=== PATIENT | male | born 1960 | race Caucasian/White ===

== ENCOUNTER 2018-03-22 11:35 | Inpatient (IN) | payer MEDICARE, MEDICAID ==
--- NOTE | 2018-03-22 11:59 | ED Physician Chart ---
ED Chief Complaint/HPI - Patient Information Date Seen:: 03/22/18 Time Seen:: 11:50 Chief Complaint:: abdominal pain History of Present Illness:: The last 3-4 days patient's had left lower quadrant abdominal pain radiating "towards" his penis. No vomiting or diarrhea. No fever. Patient has pain after urination which he normally has but it is now worse. Allergies:: Allergies Allergy/AdvReac Type Severity Reaction Status Date / Time Iodinated Contrast- Oral and Allergy Verified 03/22/18 11:54 IV Dye Historian:: Patient Review:: Nurse's Note Reviewed ED Review of Systems - Review of Systems General/Constitutional: No fever, No chills Skin: No skin lesions Head: No headache Eyes: No loss of vision ENT: No earache Neck: No neck pain Cardio Vascular: No chest pain Pulmonary: No SOB GI: No nausea, No vomiting, No diarrhea, Pain G/U: Dysuria Musculoskeletal: No bone or joint pain, No back pain, No muscle pain Endocrine: No polyuria, No polydipsia Psychiatric: No prior psych history, No depression, No anxiety, No suicidal ideation Hematopoietic: No bruising Allergic/Immuno: No urticaria Neurological: No syncope, No focal symptoms, No weakness ED Past Medical History - Past Medical History Past Medical History: HTN, CVA/TIA, Other (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 He was last hospitalized about one half months ago at [facility] following a TIA.) Family History: Heart disease Social History: Smoker, No Alcohol, Other (patient smokes 1/2-3/4 pack of cigarettes a day; he apparently drank alcohol in the past but not currently) Surgical History: other (left ankle and right shoulder) Psychiatricy History: None Medication: Reviewed Family Medical History - Family Member Father Ethnicity: Non- Living Status: Hx Family Coronary Artery Disease: Yes ED Physical Exam - Physical Examination General/Constitutional: Awake, Well-developed, well-nourished, Alert, No distress Head: Atraumatic Eyes: Lids, conjuctiva normal, PERRL Skin: Nl inspection, No rash ENMT: External ears, nose nl Neck: No nuchal rigidity Respiratory: Nl effort/Exclusion, Clear to Auscultation, No Wheeze/Rhonchi/Rales Cardio Vascular: RRR, No murmur, gallop, rubs GI: No organomegaly, No hernia, Normal BS's, Nondistended, No mass/bruits, No McBurney tenderness Other GI comments:: Left lower quadrant tenderness : No CVA tenderness Other Extremities comments:: see under neurological Other Neuro/Psych comments:: Drooping of left corner of mouth and left-sided paralysis ED Labs/Radiology/EKG Results - Lab Results Results: Laboratory Results WBC 6.9 Th/cmm (4.8-10.8) 03/22/18 12:06 RBC 4.74 Mil/cmm (4.30-5.70) 03/22/18 12:06 Hgb 15.4 gm/dL (12-16) 03/22/18 12:06 Hct 46.5 % (41.0-60) 03/22/18 12:06 MCV 98.0 fl (80-99) 03/22/18 12:06 MCH 32.5 pg (26.0-30.0) H 03/22/18 12:06 MCHC Differential 33.1 pg (28.0-36.0) 03/22/18 12:06 RDW 12.5 % (11.5-20.0) 03/22/18 12:06 Plt Count 272 Th/cmm (150-400) 03/22/18 12:06 MPV 7.7 fl 03/22/18 12:06 Neutrophils % 60.5 % (40.0-80.0) 03/22/18 12:06 Lymphocytes % 30.0 % (20.0-50.0) 03/22/18 12:06 Monocytes % 6.1 % (2.0-10.0) 03/22/18 12:06 Eosinophils % 2.8 % (0.0-5.0) 03/22/18 12:06 Basophils % 0.6 % (0.0-2.0) 03/22/18 12:06 Sodium 138 mEq/L (136-145) 03/22/18 12:06 Potassium 4.5 mEq/L (3.5-5.1) 03/22/18 12:06 Chloride 107 mEq/L (98-107) 03/22/18 12:06 Carbon Dioxide 27.0 mEq/L (21.0-31.0) 03/22/18 12:06 Anion Gap 8.5 (7.0-16.0) 03/22/18 12:06 BUN 13 mg/dL (7-25) 03/22/18 12:06 Creatinine 0.7 mg/dL (0.7-1.3) 03/22/18 12:06 Est GFR ( Amer) > 60.0 ml/min (>90) 03/22/18 12:06 Est GFR (Non-Af Amer) > 60.0 ml/min 03/22/18 12:06 BUN/Creatinine Ratio 18.6 03/22/18 12:06 Glucose 102 mg/dL (70-105) 03/22/18 12:06 Calcium 9.5 mg/dL (8.6-10.3) 03/22/18 12:06 Magnesium 2.0 mg/dL (1.9-2.7) 03/22/18 12:06 Lipase 19 U/L (11-82) 03/22/18 12:06 Abnormal Lab Results 03/22/18 03/22/18 12:06 12:06 WBC 6.9 RBC 4.74 Hgb 15.4 Hct 46.5 MCV 98.0 MCH 32.5 H MCHC Differential 33.1 RDW 12.5 Plt Count 272 MPV 7.7 Neutrophils % 60.5 Lymphocytes % 30.0 Monocytes % 6.1 Eosinophils % 2.8 Basophils % 0.6 Sodium 138 Potassium 4.5 Chloride 107 Carbon Dioxide 27.0 Anion Gap 8.5 BUN 13 Creatinine 0.7 Est GFR ( Amer) > 60.0 Est GFR (Non-Af Amer) > 60.0 BUN/Creatinine Ratio 18.6 Glucose 102 Calcium 9.5 Magnesium 2.0 Lipase 19 - Radiology Results Results: Mild thickening of the wall of the ascending colon; possible colitis. ED Septic Shock - . Is Septic Shock (SBP<90, OR Lactate>4 mmol\\L) present?: No ED Reassessment (Disposition) - Reassessment Reassessment Condition:: Unchanged - Diagnosis Diagnosis:: Colitis - Patient Disposition Admitted to:: Telemetry Spoke to:: Ray Coello Admitting Medical Physician:: Ray Coello Condition at Disposition:: Stable, Unchanged
[2018-03-22 12:21] LABS: % BASOPHILS 0.6 % (0.0-2.0); % EOSINOPHILS 2.8 % (0.0-5.0); % MONOCYTES 6.1 % (2.0-10.0); % NEUTROPHILS 60.5 % (40.0-80.0); EOSINOPHILE ABSOLUTE 0.2 Th/cmm (0.1-0.4); HEMATOCRIT 46.5 % (41.0-60); HEMOGLOBIN 15.4 gm/dL (12-16); LYMPHOCYTE ABSOLUTE 2.1 Th/cmm (1.5-3.0); MEAN CORPUSCULAR HEMOGLOBIN 32.5 pg (26.0-30.0); MEAN CORPUSCULAR HGB CONC 33.1 pg (28.0-36.0); MEAN PLATELET VOLUME 7.7 fl; MONOCYTE ABSOLUTE 0.4 Th/cmm (0.3-1.0); NEUTROPHILE ABSOLUTE 4.2 Th/cmm (1.8-8.0); PLATELET COUNT 272 Th/cmm (150-400); RED BLOOD COUNT 4.74 Mil/cmm (4.30-5.70); RED CELL DISTRIBUTION WIDTH 12.5 % (11.5-20.0); WHITE BLOOD COUNT 6.9 Th/cmm (4.8-10.8)
[2018-03-22 12:29] LABS: ANION GAP 8.5 (7.0-16.0); BUN - UREA NITROGEN 13 mg/dL (7-25); CALCIUM SERUM 9.5 mg/dL (8.6-10.3); CHLORIDE 107 mEq/L (98-107); CREATININE - SERUM 0.7 mg/dL (0.7-1.3); GFR AFRICAN-AMERICAN > 60.0 ml/min (>90); GFR NON AFRICAN-AMERICAN > 60.0 ml/min; GLUCOSE 102 mg/dL (70-105); LIPASE 19 U/L (11-82); POTASSIUM SERUM 4.5 mEq/L (3.5-5.1); SODIUM SERUM 138 mEq/L (136-145)
--- NOTE | 2018-03-22 13:46 | Diagnostic Imaging Report ---
CT scan abdomen and pelvis without intravenous contrast HISTORY: Pain Total DLP equals 757 CTDI equals 14.4 Axial sections were obtained from the xiphoid process down to the pubic symphysis. Limited sections of the lower chest demonstrate coronary artery and atherosclerotic vascular calcification. The liver exhibits a homogeneous parenchyma. No focal lesions. The spleen appears normal. No focal amenities seen within the pancreas. There are several punctate calcifications in the medullary right kidney. No hydronephrosis. No focal lesions seen within the left kidney. No hydronephrosis. Atherosclerotic calcination seen through the aorta. The exam of the pelvis demonstrates a mildly distended stool-filled rectum. No discrete abnormal soft tissue masses or abnormal fluid collections. There appears to be mild thickening of the wall along the ascending colon. Inflammatory change (colitis) cannot be excluded. Clinical correlation is needed. Scoliosis and diffuse degenerative changes seen to the spine. IMPRESSION: 1. Suggestion of mild thickening along the wall of the ascending colon. Significance should be correlated clinically. Colitis cannot be excluded. 2. Punctate nonobstructing right renal calculi 3. Atherosclerotic vascular changes 4. Scoliosis is severe diffuse degenerative changes throughout the spine 5. Mildly distended stool-filled rectum
[2018-03-22 15:18] LABS: URINE SOURCE RANDOM
[2018-03-22 15:20] LABS: URINE BILIRUBIN NEGATIVE (NEGATIVE); URINE BLOOD NEGATIVE (NEGATIVE); URINE GLUCOSE (UA) NEGATIVE (NEGATIVE); URINE KETONE NEGATIVE (NEGATIVE); URINE LEUKOCYTE ESTERASE NEGATIVE (NEGATIVE); URINE NITRATE NEGATIVE (NEGATIVE); URINE PROTEIN NEGATIVE (NEGATIVE); URINE UROBILINOGEN 0.2 E.U./dL (0.2 - 1.0)
[2018-03-22 15:33] LABS: URINE COLOR YELLOW
[2018-03-22 15:34] LABS: URINE CLARITY CLEAR (CLEAR); URINE MICROSCOPIC INDICATED? YES
[2018-03-22 15:35] LABS: URINE BACTERIA FEW /hpf (NONE SEEN); URINE EPITHELIAL CELLS NONE SEEN /lpf (FEW); URINE RBC 0-2 /hpf (0-5)
[2018-03-22] MEDS: Sodium Chloride 0.9% 1,000 ML IV SCH (16:23)
[2018-03-22] MEDS ORDERED: metroNIDAZOLE 500mg/NS 100mL 500 MG/100 ML BAG IV SCH (18:00)
[2018-03-22] MEDS: APAP/Oxycodone 5/325mg Tab PO PRN (20:11)
[2018-03-22] MEDS ORDERED: Non-Formulary Item 1 EA (Trazodone Hcl [Trazodone Hcl] 100 MG) PO PRN (23:04)
[2018-03-22] MEDS ORDERED: Magnesium Hydroxide (MOM) 30 mL UDC PO PRN (23:04)
[2018-03-22] MEDS ORDERED: Non-Formulary Item 1 EA (Oxycodone Hcl/Acetaminophen [Percocet 325 Mg-10 Mg*] 1 TAB) PO PRN (23:04)
[2018-03-22] MEDS ORDERED: APAP/Oxycodone 5/325mg Tab PO PRN (23:21)
--- NOTE | 2018-03-22 23:44 | History & Physical ---
ADMIT DATE: 03/22/2018 CHIEF COMPLAINT: A 8/10 abdominal pain. HISTORY OF PRESENT ILLNESS: The patient is a 57-year-old male admitted from the Emergency Room to telemetry floor of [facility] due to 8/10 abdominal pain in the [facility]pc. Abdominal and pelvic CT scan done here revealed mild thickening along the wall of the ascending colon suggesting colitis. I saw the patient on Flagyl 500 mg IVPB already, but the patient refused IV and I have changed it to p.o. The patient is very confused and agitated now. Apparently, he does have history of schizophrenia and I have requested psychiatric consultation. He also has a history of chronic pain syndrome and is on pain medication from the [facility], which was provided by the pain specialist. PAST MEDICAL HISTORY: Including status post TIA, difficulty walking, lack of coordination with abnormal posture, seizure disorder, chronic peptic ulcer disease, gout, hyperlipidemia, schizophrenia, polyneuropathy, and depression. PAST SURGICAL HISTORY: Denies significant past surgical history. MEDICATIONS: See medication reconciliation list. ALLERGIES: IODINE. FAMILY HISTORY: Noncontributory. SOCIAL HISTORY: Smoked before heavily, quit years ago. No history of alcohol or IV drug use. REVIEW OF SYSTEMS: As per HPI. PHYSICAL EXAMINATION: GENERAL: Well-developed, well-nourished male, in no acute distress. SKIN: Warm and dry. VITAL SIGNS: Basically stable. HEENT: Normocephalic, atraumatic. Pupils equal, round, react to light and accommodation. CHEST: Symmetrical. LUNGS: Clear to auscultation bilaterally. CARDIAC: Normal sinus rhythm, S1, S2. ABDOMEN: There is tenderness in the left lower quadrant of abdomen. Bowel sounds positive. EXTREMITIES: No clubbing, cyanosis. Edema bilaterally, 2+ equally. NEUROLOGICAL: Unremarkable. LABORATORY DATA: Reviewed. ASSESSMENT AND PLAN: 1. A 8/10 abdominal pain: I ordered for a clear liquid diet and we will observe closely. CT evidence of probable colitis. I will start the patient on Flagyl IVPB, but the patient refused IV access. We have changed it to p.o. 2. Altered level of consciousness due to metabolic encephalopathy. We will observe closely. 3. Agitation: The patient may need a sitter. 4. Chronic pain syndrome exacerbation: Adjust pain medication as needed. 5. Insomnia: The patient is on trazodone. 6. Schizophrenia: Psychiatric consultation. 7. DVT prophylaxis. JOB# [id number]
[2018-03-23] MEDS: metroNIDAZOLE 500mg/NS 100mL 500 MG/100 ML BAG IV SCH ×4 (00:47→17:29)
[2018-03-23] MEDS: APAP/Oxycodone 5/325mg Tab PO PRN ×3 (02:14→16:24)
[2018-03-23] MEDS ORDERED: Non-Formulary Item 1 EA (Apixaban [Eliquis] 5 MG) PO SCH (09:00)
[2018-03-23] MEDS ORDERED: Non-Formulary Item 1 EA (Docusate Sodium [Docusate Sodium] 100 MG) PO SCH (09:00)
[2018-03-23] MEDS ORDERED: Non-Formulary Item 1 EA (Levetiracetam [Keppra] 1,000 MG) PO SCH (09:00)
[2018-03-23] MEDS: Multivitamin w/ Minerals Tab PO SCH (09:48)
[2018-03-23] MEDS: Sodium Chloride 0.9% 1,000 ML IV SCH (19:00)
[2018-03-23] MEDS ORDERED: Non-Formulary Item 1 EA (Atorvastatin Calcium [Lipitor] 40 MG) PO SCH (21:00)
[2018-03-24] MEDS: APAP/Oxycodone 5/325mg Tab PO PRN ×5 (00:05→18:41)
[2018-03-24] MEDS: metroNIDAZOLE 500mg/NS 100mL 500 MG/100 ML BAG IV SCH ×4 (00:05→17:06)
--- NOTE | 2018-03-24 01:37 | Consultation ---
DATE OF CONSULTATION: 03/23/2018 IDENTIFYING INFORMATION: The patient is a 57-year-old male. HISTORY OF PRESENT ILLNESS: The patient with a history of schizophrenia. The patient was admitted because of abdominal pain 8/[address] scan done revealed mild thickening along the wall of the ascending colon and suggesting colitis. The patient refused IV, so the doctor changed it to p.o. He was confused and agitated. Apparently, he does have a history of schizophrenia according to the records from Dr. Coello, the patient with a history of chronic pain, so they requested a psychiatric consult. When I talked to the patient, he was very upset because he said he never had a history of schizophrenia that in the past they gave him Seroquel to sleep, but he was never hospitalized, never tried to harm himself, he just suffered with anxiety. He was somewhat irritable and upset, but he denies any intent to harm himself or anybody. He reported cannot sleep here because it is too cold and the food is not good. However, he was adamant that he never had any major psychiatric issues, just anxiety. PAST PSYCHIATRIC HISTORY: The patient only had a history of anxiety and that he did get on Seroquel in the past because of lack of sleep. He currently is on trazodone at bedtime for lack of sleep. MEDICAL HISTORY: Colitis, ____ he may have metabolic encephalopathy, chronic pain syndrome, and DVT prophylaxis. ALLERGIES: THE PATIENT IS ALLERGIC TO IODINE ORAL AND IV DYE. MEDICATIONS: The patient is on pain medications ____, oxycodone, atorvastatin for hyperlipidemia, Dulcolax, diphenhydramine as needed, and Neurontin 300 mg 4 times a day. He is on Keppra with a history of seizure disorder, Robaxin, methocarbamol, metronidazole oral for colitis, multivitamin, and trazodone 100 mg at bedtime as needed for lack of sleep. FAMILY AND SOCIAL HISTORY: The patient reports that he is for 16-17 years from marriage of 19 years, has 2 children, a boy and a girl, 12th grade education. 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 He reports he drinks socially. He used to use marijuana, but not recently. He said he was at the [place] and they tested him randomly because of the pain medication. They would not give him the pain medication if he was found to be abusing street drugs ____. The patient denies any past psychotic disorder, suicide. The patient has been living in a medical facility as he had a history of CVA in 1999 and he has 4 of them so far. He has no legal problem. MENTAL STATUS EXAMINATION: The patient is appropriately dressed, appropriately groomed. He was able to tell me the date, but he had to look at his watch. He knew he was in a hospital, but he denies if he was ever schizophrenic. He said his sleep and appetite varies. He lives in a nursing facility. Appetite is okay. He sleeps well at the nursing facility. He denies any intent to harm himself or anybody. Denies any auditory or visual hallucination or paranoia, he reports he never had that problem. Long-term is good for age, date of . Recent memory is good, for events led to him coming here, what he ate for breakfast. Insight about his illness is fair. Judgment is fair. IMPRESSION: Generalized anxiety disorder, not otherwise specified. PLAN: I would recommend continue trazodone. The patient needs follow up with the psychiatrist on discharge. Thank you very much for allowing me to participate in the care of this most interesting gentleman. JOB# [id number]
[2018-03-24] MEDS: Multivitamin w/ Minerals Tab PO SCH (09:01)
--- NOTE | 2018-03-24 21:24 | Consultation ---
DATE OF CONSULTATION: 03/24/2018 REASON FOR CONSULTATION: Abdominal pain. HISTORY OF PRESENT ILLNESS: This consult obtained through the request of Dr. Coello for this 57-year-old with extensive medical history including for CVAs, atrial fibrillation, hypertension, multiple disk problems who lives in a [facility], was admitted to the hospital because of abdominal pain. Apparently, the patient has been having pain off and on for a couple of months. At this time, it was 8/10 and started few days ago. He came to the hospital, had a CAT scan, which showed thickening of the right side of the colon. The patient was admitted. GI consult was called in for further evaluation. The patient has lost weight in the past, but now that he is in a chcf. He is eating better. He has no nausea or vomiting. He has constipation, no bleeding. He had a colonoscopy and endoscopy at the [place] 4 years ago and it showed 5 polyps. PAST MEDICAL HISTORY: TIAs and CVAs, seizure disorder, peptic ulcer disease, gout, hyperlipidemia, schizophrenia, depression, disk disease and atrial fibrillation. PAST SURGICAL HISTORY: Had left ankle. He had right shoulder SOCIAL HISTORY: Smokes half to 3/4 pack a day, nonalcoholic and IV drug abuser. FAMILY HISTORY: Father of stomach and liver cancer. ALLERGIES: CONTRAST. MEDICATIONS: The patient is on Tylenol, vitamin C, atorvastatin, bisacodyl, Benadryl, Colace, Neurontin, Keppra, milk of magnesia, Robaxin, Flagyl, iron, [place] and Desyrel. REVIEW OF SYSTEMS: No weight loss. No nausea or vomiting, but there is constipation, no bleeding. PHYSICAL EXAMINATION: GENERAL: The patient is awake, oriented to self, place, and time, in no acute distress. VITAL SIGNS: Blood pressure is 122/86, heart rate 76, respiratory rate 18 and temperature is 97.3. HEAD AND NECK: Pupils reactive to light and accommodation. Extraocular muscles intact. Sclerae are anicteric. Conjunctivae not pale. Oral cavity, no lesion. NECK: Supple. CHEST: Good air entry. LUNGS: Clear to auscultation. CARDIOVASCULAR: Regular rate and rhythm. No murmur or gallop. ABDOMEN: Soft. Positive bowel sounds. Mild diffuse tenderness. EXTREMITIES: Lower extremities, no edema. CENTRAL NERVOUS SYSTEM: The patient is in a wheelchair, not able to move the left side. LABORATORY AND DIAGNOSTIC DATA: CBC unremarkable. Chemistry also unremarkable, but it did not include liver enzymes. CAT scan showed thickening of the right side of the colon. IMPRESSION: A 57-year-old with abdominal pain and history of colon polyps. ASSESSMENT AND PLAN: Abdominal pain: This picture could be related to colitis even though this most likely nonspecific and might be some incomplete filling of the colon, but given the history of patient having pain off and on for a while, has lost some weight, but now is getting it back, has several polyps removed 4 years ago he will need to have another colonoscopy, so we will plan to check it on Monday and then further recommendations to follow. Other differential would be renal calculi, even though patient had a CAT scan, which showed some stones, but they are not obstructing and he has also stools in the colon. Also, we will recheck liver enzymes and then further recommendations to follow. Other medical problems such as atrial fibrillation, seizure, cerebrovascular accident, disk disease, etc., as per Dr. Coello. Thank you, Dr. Coello, for allowing me to participate in the care of the patient. If you have any further questions, please let me know. JOB# [id number]
[2018-03-24] MEDS ORDERED: Morphine Sulfate 4 mg/mL 1mL Syr IVP PRN (23:54)
[2018-03-25] MEDS: APAP/Oxycodone 5/325mg Tab PO PRN ×4 (00:13→20:34)
--- NOTE | 2018-03-25 00:22 | Internal Medicine Prog Note ---
Internal Medicine Subjective - Subjective Service Date: 03/23/18 Patient seen and examined:: with staff Patient is:: awake, verbal, interactive, arousable, in bed Patient Complaints of:: unable to sleep Per staff patient has:: no adverse event Internal Medicine Objective - Results Result Diagrams: 03/22/18 12:06 03/22/18 12:06 Recent Labs: Laboratory Last Values WBC 6.9 Th/cmm (4.8-10.8) 03/22/18 12:06 RBC 4.74 Mil/cmm (4.30-5.70) 03/22/18 12:06 Hgb 15.4 gm/dL (12-16) 03/22/18 12:06 Hct 46.5 % (41.0-60) 03/22/18 12:06 MCV 98.0 fl (80-99) 03/22/18 12:06 MCH 32.5 pg (26.0-30.0) H 03/22/18 12:06 MCHC Differential 33.1 pg (28.0-36.0) 03/22/18 12:06 RDW 12.5 % (11.5-20.0) 03/22/18 12:06 Plt Count 272 Th/cmm (150-400) 03/22/18 12:06 MPV 7.7 fl 03/22/18 12:06 Neutrophils % 60.5 % (40.0-80.0) 03/22/18 12:06 Lymphocytes % 30.0 % (20.0-50.0) 03/22/18 12:06 Monocytes % 6.1 % (2.0-10.0) 03/22/18 12:06 Eosinophils % 2.8 % (0.0-5.0) 03/22/18 12:06 Basophils % 0.6 % (0.0-2.0) 03/22/18 12:06 Sodium 138 mEq/L (136-145) 03/22/18 12:06 Potassium 4.5 mEq/L (3.5-5.1) 03/22/18 12:06 Chloride 107 mEq/L (98-107) 03/22/18 12:06 Carbon Dioxide 27.0 mEq/L (21.0-31.0) 03/22/18 12:06 Anion Gap 8.5 (7.0-16.0) 03/22/18 12:06 BUN 13 mg/dL (7-25) 03/22/18 12:06 Creatinine 0.7 mg/dL (0.7-1.3) 03/22/18 12:06 Est GFR ( Amer) > 60.0 ml/min (>90) 03/22/18 12:06 Est GFR (Non-Af Amer) > 60.0 ml/min 03/22/18 12:06 BUN/Creatinine Ratio 18.6 03/22/18 12:06 Glucose 102 mg/dL (70-105) 03/22/18 12:06 Calcium 9.5 mg/dL (8.6-10.3) 03/22/18 12:06 Magnesium 2.0 mg/dL (1.9-2.7) 03/22/18 12:06 Lipase 19 U/L (11-82) 03/22/18 12:06 Urine Source RANDOM 03/22/18 15:08 Urine Color YELLOW 03/22/18 15:08 Urine Clarity CLEAR (CLEAR) 03/22/18 15:08 Urine pH 6.0 (4.6 - 8.0) 03/22/18 15:08 Ur Specific [place] >= 1.030 (1.005-1.030) 03/22/18 15:08 Urine Protein NEGATIVE mg/dL (NEGATIVE) 03/22/18 15:08 Urine Glucose (UA) NEGATIVE mg/dL (NEGATIVE) 03/22/18 15:08 Urine Ketones NEGATIVE mg/dL (NEGATIVE) 03/22/18 15:08 Urine Blood NEGATIVE (NEGATIVE) 03/22/18 15:08 Urine Nitrate NEGATIVE (NEGATIVE) 03/22/18 15:08 Urine Bilirubin NEGATIVE (NEGATIVE) 03/22/18 15:08 Urine Urobilinogen 0.2 E.U./dL (0.2 - 1.0) 03/22/18 15:08 Ur Leukocyte Esterase NEGATIVE (NEGATIVE) 03/22/18 15:08 Urine RBC 0-2 /hpf (0-5) H 03/22/18 15:08 Urine WBC 2-5 /hpf (0-5) 03/22/18 15:08 Ur Epithelial Cells NONE SEEN /lpf (FEW) 03/22/18 15:08 Urine Bacteria FEW /hpf (NONE SEEN) 03/22/18 15:08 - Physical Exam Vitals and I&O: Vital Signs Temp 97.6 F 03/24/18 20:00 Pulse 75 03/24/18 20:00 Resp 18 03/24/18 20:00 BP 136/97 03/24/18 20:00 Pulse Ox 96 03/24/18 20:00 Intake & Output 03/24/18 03/24/18 03/25/18 06:59 18:59 06:59 Intake Total 958.75 300 Balance 958.75 300 Intake: Intake, IV Amount 958.75 300 Sodium Chloride 0.9% 1, 858.75 000 ml @ 75 mls/hr IV . [id number] [facility] Rx#:[id number] metroNIDAZOLE 500mg/NS 100 300 100mL 500 mg In 100 ml @ 100 mls/hr IV Q6HR [facility] Rx #:[id number] Active Medications: Current Medications Acetaminophen (Tylenol) 325 mg PO Q6HR PRN PRN Reason: Pain or Fever >101 Stop: 05/21/18 23:03 Ascorbic Acid (Vitamin C) 500 mg PO DAILY [facility] Stop: 05/22/18 08:59 Last Admin: 03/24/18 09:01 Dose: 500 mg Atorvastatin Calcium (Lipitor) 40 mg PO HS [facility] Stop: 05/22/18 20:59 Last Admin: 03/24/18 21:01 Dose: 40 mg Bisacodyl (Dulcolax 10 Mg Supp) 10 mg RC DAILY PRN PRN Reason: Constipation Stop: 05/21/18 23:03 Bisacodyl (Dulcolax 5 Mg Ec Tab) 10 mg PO X1 ONE Stop: 03/26/18 16:01 Diphenhydramine HCl (Benadryl) 50 mg PO Q6H PRN PRN Reason: Itching Stop: 05/21/18 23:03 Last Admin: 03/24/18 21:03 Dose: 50 mg Docusate Sodium (Colace) 250 mg PO DAILY [facility] Stop: 05/22/18 08:59 Last Admin: 03/24/18 09:23 Dose: Not Given Gabapentin (Neurontin) 300 mg PO QID SHELL Stop: 05/22/18 08:59 Last Admin: 03/24/18 21:01 Dose: 300 mg Sodium Chloride (Nacl 0.9%) 1,000 mls @ 75 mls/hr IV .[id number] [facility] Stop: 05/21/18 15:25 Last Infusion: 03/24/18 06:27 Dose: 75 mls/hr Metronidazole (Flagyl) 500 mg in 100 mls @ 100 mls/hr IV Q6HR [facility] Stop: 05/22/18 00:29 Last Infusion: 03/24/18 18:24 Dose: Infused Levetiracetam (Keppra) 1,000 mg PO Q12H [facility] Stop: 05/21/18 08:59 Last Admin: 03/24/18 21:00 Dose: 1,000 mg Magnesium Hydroxide (Milk Of Magnesia) 30 ml PO HS PRN PRN Reason: Constipation Stop: 05/21/18 23:03 Methocarbamol (Robaxin) 500 mg PO BID PRN PRN Reason: Pain (Moderate) Stop: 05/21/18 16:39 Last Admin: 03/22/18 20:11 Dose: 500 mg Methocarbamol (Robaxin) 250 mg PO BID PRN PRN Reason: Spasms Stop: 05/21/18 23:03 Miscellaneous (Apixaban [Eliquis]) 5 mg PO Q12HR [facility] Stop: 05/22/18 08:59 Morphine Sulfate (Morphine) 3 mg IVP Q4H PRN PRN Reason: SERVERE PAIN Stop: 05/23/18 23:53 Oxycodone/Acetaminophen (Percocet 5/325mg Oral Tab) 2 tab PO Q4H PRN PRN Reason: Pain (Severe) Stop: 05/22/18 16:08 Last Admin: 03/24/18 18:41 Dose: 2 tab Polyethylene Glycol/Electrolytes (Golytely) 4,000 ml PO X1 ONE Stop: 03/25/18 11:39 Trazodone HCl (Desyrel) 100 mg PO HS PRN PRN Reason: Insomnia Stop: 05/21/18 23:19 Last Admin: 03/22/18 23:52 Dose: 100 mg General: weak, lethargic HEENT: NC/AT, PERRLA, EOMI, anicteric sclerae, throat clear, thyromegaly Neck: Supple, No JVD Lungs: CTAB Cardiovascular: RRR, Normal S1, Normal S2 Abdomen: soft, tender Extremities: clear Neurological: no change Internal Medicine Assmt/Plan - Assessment Assessment: Abd pain: multifactorial; work up in progress. Colitis: flagyl IVPB or PO; GI consult appreciated. h/o colon polyps: Colonoscopy? Chronic pain syndrome exacerbation: adjusting pain meds? Anxiety: Psychiatric consult. Difficult walking: fall prevention.
--- NOTE | 2018-03-25 00:23 | Internal Medicine Prog Note ---
Internal Medicine Subjective - Subjective Service Date: 03/24/18 Patient seen and examined:: with staff, without staff Patient is:: awake, verbal, interactive, arousable, in bed Patient Complaints of:: unable to sleep Per staff patient has:: no adverse event Internal Medicine Objective - Results Result Diagrams: 03/22/18 12:06 03/22/18 12:06 Recent Labs: Laboratory Last Values WBC 6.9 Th/cmm (4.8-10.8) 03/22/18 12:06 RBC 4.74 Mil/cmm (4.30-5.70) 03/22/18 12:06 Hgb 15.4 gm/dL (12-16) 03/22/18 12:06 Hct 46.5 % (41.0-60) 03/22/18 12:06 MCV 98.0 fl (80-99) 03/22/18 12:06 MCH 32.5 pg (26.0-30.0) H 03/22/18 12:06 MCHC Differential 33.1 pg (28.0-36.0) 03/22/18 12:06 RDW 12.5 % (11.5-20.0) 03/22/18 12:06 Plt Count 272 Th/cmm (150-400) 03/22/18 12:06 MPV 7.7 fl 03/22/18 12:06 Neutrophils % 60.5 % (40.0-80.0) 03/22/18 12:06 Lymphocytes % 30.0 % (20.0-50.0) 03/22/18 12:06 Monocytes % 6.1 % (2.0-10.0) 03/22/18 12:06 Eosinophils % 2.8 % (0.0-5.0) 03/22/18 12:06 Basophils % 0.6 % (0.0-2.0) 03/22/18 12:06 Sodium 138 mEq/L (136-145) 03/22/18 12:06 Potassium 4.5 mEq/L (3.5-5.1) 03/22/18 12:06 Chloride 107 mEq/L (98-107) 03/22/18 12:06 Carbon Dioxide 27.0 mEq/L (21.0-31.0) 03/22/18 12:06 Anion Gap 8.5 (7.0-16.0) 03/22/18 12:06 BUN 13 mg/dL (7-25) 03/22/18 12:06 Creatinine 0.7 mg/dL (0.7-1.3) 03/22/18 12:06 Est GFR ( Amer) > 60.0 ml/min (>90) 03/22/18 12:06 Est GFR (Non-Af Amer) > 60.0 ml/min 03/22/18 12:06 BUN/Creatinine Ratio 18.6 03/22/18 12:06 Glucose 102 mg/dL (70-105) 03/22/18 12:06 Calcium 9.5 mg/dL (8.6-10.3) 03/22/18 12:06 Magnesium 2.0 mg/dL (1.9-2.7) 03/22/18 12:06 Lipase 19 U/L (11-82) 03/22/18 12:06 Urine Source RANDOM 03/22/18 15:08 Urine Color YELLOW 03/22/18 15:08 Urine Clarity CLEAR (CLEAR) 03/22/18 15:08 Urine pH 6.0 (4.6 - 8.0) 03/22/18 15:08 Ur Specific [place] >= 1.030 (1.005-1.030) 03/22/18 15:08 Urine Protein NEGATIVE mg/dL (NEGATIVE) 03/22/18 15:08 Urine Glucose (UA) NEGATIVE mg/dL (NEGATIVE) 03/22/18 15:08 Urine Ketones NEGATIVE mg/dL (NEGATIVE) 03/22/18 15:08 Urine Blood NEGATIVE (NEGATIVE) 03/22/18 15:08 Urine Nitrate NEGATIVE (NEGATIVE) 03/22/18 15:08 Urine Bilirubin NEGATIVE (NEGATIVE) 03/22/18 15:08 Urine Urobilinogen 0.2 E.U./dL (0.2 - 1.0) 03/22/18 15:08 Ur Leukocyte Esterase NEGATIVE (NEGATIVE) 03/22/18 15:08 Urine RBC 0-2 /hpf (0-5) H 03/22/18 15:08 Urine WBC 2-5 /hpf (0-5) 03/22/18 15:08 Ur Epithelial Cells NONE SEEN /lpf (FEW) 03/22/18 15:08 Urine Bacteria FEW /hpf (NONE SEEN) 03/22/18 15:08 - Physical Exam Vitals and I&O: Vital Signs Temp 97.6 F 03/24/18 20:00 Pulse 75 03/24/18 20:00 Resp 18 03/24/18 20:00 BP 136/97 03/24/18 20:00 Pulse Ox 96 03/24/18 20:00 Intake & Output 03/24/18 03/24/18 03/25/18 06:59 18:59 06:59 Intake Total 958.75 300 Balance 958.75 300 Intake: Intake, IV Amount 958.75 300 Sodium Chloride 0.9% 1, 858.75 000 ml @ 75 mls/hr IV . [id number] [facility] Rx#:[id number] metroNIDAZOLE 500mg/NS 100 300 100mL 500 mg In 100 ml @ 100 mls/hr IV Q6HR [facility] Rx #:[id number] Active Medications: Current Medications Acetaminophen (Tylenol) 325 mg PO Q6HR PRN PRN Reason: Pain or Fever >101 Stop: 05/21/18 23:03 Ascorbic Acid (Vitamin C) 500 mg PO DAILY [facility] Stop: 05/22/18 08:59 Last Admin: 03/24/18 09:01 Dose: 500 mg Atorvastatin Calcium (Lipitor) 40 mg PO HS [facility] Stop: 05/22/18 20:59 Last Admin: 03/24/18 21:01 Dose: 40 mg Bisacodyl (Dulcolax 10 Mg Supp) 10 mg RC DAILY PRN PRN Reason: Constipation Stop: 05/21/18 23:03 Bisacodyl (Dulcolax 5 Mg Ec Tab) 10 mg PO X1 ONE Stop: 03/26/18 16:01 Diphenhydramine HCl (Benadryl) 50 mg PO Q6H PRN PRN Reason: Itching Stop: 05/21/18 23:03 Last Admin: 03/24/18 21:03 Dose: 50 mg Docusate Sodium (Colace) 250 mg PO DAILY [facility] Stop: 05/22/18 08:59 Last Admin: 03/24/18 09:23 Dose: Not Given Gabapentin (Neurontin) 300 mg PO QID [facility] Stop: 05/22/18 08:59 Last Admin: 03/24/18 21:01 Dose: 300 mg Sodium Chloride (Nacl 0.9%) 1,000 mls @ 75 mls/hr IV .[id number] [facility] Stop: 05/21/18 15:25 Last Infusion: 03/24/18 06:27 Dose: 75 mls/hr Metronidazole (Flagyl) 500 mg in 100 mls @ 100 mls/hr IV Q6HR [facility] Stop: 05/22/18 00:29 Last Infusion: 03/24/18 18:24 Dose: Infused Levetiracetam (Keppra) 1,000 mg PO Q12H [facility] Stop: 05/21/18 08:59 Last Admin: 03/24/18 21:00 Dose: 1,000 mg Magnesium Hydroxide (Milk Of Magnesia) 30 ml PO HS PRN PRN Reason: Constipation Stop: 05/21/18 23:03 Methocarbamol (Robaxin) 500 mg PO BID PRN PRN Reason: Pain (Moderate) Stop: 05/21/18 16:39 Last Admin: 03/22/18 20:11 Dose: 500 mg Methocarbamol (Robaxin) 250 mg PO BID PRN PRN Reason: Spasms Stop: 05/21/18 23:03 Last Admin: 03/25/18 00:14 Dose: 250 mg Miscellaneous (Apixaban [Eliquis]) 5 mg PO Q12HR [facility] Stop: 05/22/18 08:59 Morphine Sulfate (Morphine) 3 mg IVP Q4H PRN PRN Reason: SERVERE PAIN Stop: 05/23/18 23:53 Oxycodone/Acetaminophen (Percocet 5/325mg Oral Tab) 2 tab PO Q4H PRN PRN Reason: Pain (Severe) Stop: 05/22/18 16:08 Last Admin: 03/25/18 00:13 Dose: 2 tab Polyethylene Glycol/Electrolytes (Golytely) 4,000 ml PO X1 ONE Stop: 03/25/18 11:39 Trazodone HCl (Desyrel) 100 mg PO HS PRN PRN Reason: Insomnia Stop: 05/21/18 23:19 Last Admin: 03/25/18 00:13 Dose: 100 mg General: weak, lethargic HEENT: NC/AT, PERRLA, EOMI, anicteric sclerae, throat clear, thyromegaly Neck: Supple, No JVD Lungs: CTAB Cardiovascular: RRR, Normal S1, Normal S2 Abdomen: soft, tender Extremities: clear Neurological: no change Internal Medicine Assmt/Plan - Assessment Assessment: Insomnia: adjusting meds? Abd pain: multifactorial; work up in progress. Colitis: flagyl IVPB or PO; GI consult appreciated. h/o colon polyps: Colonoscopy? Chronic pain syndrome exacerbation: adjusting pain meds? Anxiety: Psychiatric consult. Difficult walking: fall prevention.
[2018-03-25] MEDS: metroNIDAZOLE 500mg/NS 100mL 500 MG/100 ML BAG IV SCH ×4 (00:55→19:24)
--- NOTE | 2018-03-25 01:19 | Progress Notes ---
DATE: 03/24/2018 Case was discussed with staff of the patient, reviewed records. The patient is being described by staff as being manipulative. He continues to deny that he had ever had a history of schizophrenia. He denies any current intent to harm himself or anybody. He denies any current ____ paranoia. No side effects of the medication, no sedation. He said his only issue is sleep and he is on trazodone 100 mg at bedtime as needed and Benadryl every 6 hours for itching, also Neurontin 300 mg 3 times a day. He also takes a lot of other medication as I described yesterday. He is having colitis, severe abdominal pain. The patient needs follow up with the psychiatrist upon discharge. Thank you very much for allowing me to participate in the care of this most interesting patient. JOB# [id number]
[2018-03-25 06:45] LABS: % BASOPHILS 0.3 % (0.0-2.0); % EOSINOPHILS 3.3 % (0.0-5.0); % LYMPHOCYTES 41.9 % (20.0-50.0); % MONOCYTES 7.3 % (2.0-10.0); % NEUTROPHILS 47.2 % (40.0-80.0); EOSINOPHILE ABSOLUTE 0.2 Th/cmm (0.1-0.4); HEMATOCRIT 44.7 % (41.0-60); HEMOGLOBIN 14.8 gm/dL (12-16); LYMPHOCYTE ABSOLUTE 2.8 Th/cmm (1.5-3.0); MEAN CELL VOLUME 98.8 fl (80-99); MEAN CORPUSCULAR HEMOGLOBIN 32.8 pg (26.0-30.0); MEAN CORPUSCULAR HGB CONC 33.2 pg (28.0-36.0); MEAN PLATELET VOLUME 7.9 fl; MONOCYTE ABSOLUTE 0.5 Th/cmm (0.3-1.0); NEUTROPHILE ABSOLUTE 3.2 Th/cmm (1.8-8.0); PLATELET COUNT 247 Th/cmm (150-400); RED BLOOD COUNT 4.52 Mil/cmm (4.30-5.70); RED CELL DISTRIBUTION WIDTH 12.4 % (11.5-20.0); WHITE BLOOD COUNT 6.7 Th/cmm (4.8-10.8)
[2018-03-25 07:04] LABS: INR 1.17 (0.5-1.4); PROTHROMBIN TIME (TEST) 12.1 SECONDS (9.5-11.5)
[2018-03-25 07:07] LABS: ALB/GLOB RATIO 1.3 (1.0-1.8); ALBUMIN 3.5 gm/dL (4.2-5.5); ALKALINE PHOSPHATASE 58 U/L (34-104); ANION GAP 8.5 (7.0-16.0); BILIRUBIN,TOTAL 0.4 mg/dL (0.3-1.0); BUN - UREA NITROGEN 14 mg/dL (7-25); CALCIUM SERUM 8.9 mg/dL (8.6-10.3); CARBON DIOXIDE 27.1 mEq/L (21.0-31.0); CHLORIDE 110 mEq/L (98-107); CREATININE - SERUM 0.8 mg/dL (0.7-1.3); GFR AFRICAN-AMERICAN > 60.0 ml/min (>90); GFR NON AFRICAN-AMERICAN > 60.0 ml/min; GLUCOSE 102 mg/dL (70-105); POTASSIUM SERUM 3.6 mEq/L (3.5-5.1); SGOT 14 U/L (13-39); SGPT/ALT 12 U/L (7-52); SODIUM SERUM 142 mEq/L (136-145); TOTAL PROTEIN,SERUM 6.3 gm/dL (6.0-8.3)
--- NOTE | 2018-03-25 10:45 | GI Progress Note ---
Subjective - Review of Systems Service Date: 03/25/18 Events since last encounter: No events Subjective: Wants to eat Objective - Results Result Diagrams: 03/25/18 06:02 03/25/18 06:02 Recent Labs: Laboratory Last Values WBC 6.7 Th/cmm (4.8-10.8) 03/25/18 06:02 RBC 4.52 Mil/cmm (4.30-5.70) 03/25/18 06:02 Hgb 14.8 gm/dL (12-16) 03/25/18 06:02 Hct 44.7 % (41.0-60) 03/25/18 06:02 MCV 98.8 fl (80-99) 03/25/18 06:02 MCH 32.8 pg (26.0-30.0) H 03/25/18 06:02 MCHC Differential 33.2 pg (28.0-36.0) 03/25/18 06:02 RDW 12.4 % (11.5-20.0) 03/25/18 06:02 Plt Count 247 Th/cmm (150-400) 03/25/18 06:02 MPV 7.9 fl 03/25/18 06:02 Neutrophils % 47.2 % (40.0-80.0) 03/25/18 06:02 Lymphocytes % 41.9 % (20.0-50.0) 03/25/18 06:02 Monocytes % 7.3 % (2.0-10.0) 03/25/18 06:02 Eosinophils % 3.3 % (0.0-5.0) 03/25/18 06:02 Basophils % 0.3 % (0.0-2.0) 03/25/18 06:02 PT 12.1 SECONDS (9.5-11.5) H 03/25/18 06:02 INR 1.17 (0.5-1.4) 03/25/18 06:02 Sodium 142 mEq/L (136-145) 03/25/18 06:02 Potassium 3.6 mEq/L (3.5-5.1) 03/25/18 06:02 Chloride 110 mEq/L (98-107) H 03/25/18 06:02 Carbon Dioxide 27.1 mEq/L (21.0-31.0) 03/25/18 06:02 Anion Gap 8.5 (7.0-16.0) 03/25/18 06:02 BUN 14 mg/dL (7-25) 03/25/18 06:02 Creatinine 0.8 mg/dL (0.7-1.3) 03/25/18 06:02 Est GFR ( Amer) > 60.0 ml/min (>90) 03/25/18 06:02 Est GFR (Non-Af Amer) > 60.0 ml/min 03/25/18 06:02 BUN/Creatinine Ratio 17.5 03/25/18 06:02 Glucose 102 mg/dL (70-105) 03/25/18 06:02 Calcium 8.9 mg/dL (8.6-10.3) 03/25/18 06:02 Magnesium 2.0 mg/dL (1.9-2.7) 03/22/18 12:06 Total Bilirubin 0.4 mg/dL (0.3-1.0) 03/25/18 06:02 AST 14 U/L (13-39) 03/25/18 06:02 ALT 12 U/L (7-52) 03/25/18 06:02 Alkaline Phosphatase 58 U/L (34-104) 03/25/18 06:02 B-Natriuretic Peptide 147.0 pg/mL (5.0-100.0) H 03/25/18 06:02 Total Protein 6.3 gm/dL (6.0-8.3) 03/25/18 06:02 Albumin 3.5 gm/dL (4.2-5.5) L 03/25/18 06:02 Globulin 2.8 gm/dL 03/25/18 06:02 Albumin/Globulin Ratio 1.3 (1.0-1.8) 03/25/18 06:02 Lipase 19 U/L (11-82) 03/22/18 12:06 Urine Source RANDOM 03/22/18 15:08 Urine Color YELLOW 03/22/18 15:08 Urine Clarity CLEAR (CLEAR) 03/22/18 15:08 Urine pH 6.0 (4.6 - 8.0) 03/22/18 15:08 Ur Specific [place] >= 1.030 (1.005-1.030) 03/22/18 15:08 Urine Protein NEGATIVE mg/dL (NEGATIVE) 03/22/18 15:08 Urine Glucose (UA) NEGATIVE mg/dL (NEGATIVE) 03/22/18 15:08 Urine Ketones NEGATIVE mg/dL (NEGATIVE) 03/22/18 15:08 Urine Blood NEGATIVE (NEGATIVE) 03/22/18 15:08 Urine Nitrate NEGATIVE (NEGATIVE) 03/22/18 15:08 Urine Bilirubin NEGATIVE (NEGATIVE) 03/22/18 15:08 Urine Urobilinogen 0.2 E.U./dL (0.2 - 1.0) 03/22/18 15:08 Ur Leukocyte Esterase NEGATIVE (NEGATIVE) 03/22/18 15:08 Urine RBC 0-2 /hpf (0-5) H 03/22/18 15:08 Urine WBC 2-5 /hpf (0-5) 03/22/18 15:08 Ur Epithelial Cells NONE SEEN /lpf (FEW) 03/22/18 15:08 Urine Bacteria FEW /hpf (NONE SEEN) 03/22/18 15:08 - Physical Exam Vitals and I&O: Vital Signs Temp 97.6 F 03/25/18 08:00 Pulse 68 03/25/18 08:00 Resp 18 03/25/18 08:00 BP 98/70 03/25/18 08:00 Pulse Ox 97 03/25/18 08:00 Intake & Output 03/24/18 03/25/18 03/25/18 18:59 06:59 18:59 Intake Total 300 100 Balance 300 100 Weight (lbs) 84.822 kg Intake: Intake, IV Amount 300 100 metroNIDAZOLE 500mg/NS 300 100 100mL 500 mg In 100 ml @ 100 mls/hr IV Q6HR [facility] Rx #:[id number] Other: # Voids 3 Weight Source Bedscale Active Medications: Current Medications Acetaminophen (Tylenol) 325 mg PO Q6HR PRN PRN Reason: Pain or Fever >101 Stop: 05/21/18 23:03 Ascorbic Acid (Vitamin C) 500 mg PO DAILY [facility] Stop: 05/22/18 08:59 Last Admin: 03/24/18 09:01 Dose: 500 mg Atorvastatin Calcium (Lipitor) 40 mg PO HS [facility] Stop: 05/22/18 20:59 Last Admin: 03/24/18 21:01 Dose: 40 mg Bisacodyl (Dulcolax 10 Mg Supp) 10 mg RC DAILY PRN PRN Reason: Constipation Stop: 05/21/18 23:03 Bisacodyl (Dulcolax 5 Mg Ec Tab) 10 mg PO X1 ONE Stop: 03/26/18 16:01 Diphenhydramine HCl (Benadryl) 50 mg PO Q6H PRN PRN Reason: Itching Stop: 05/21/18 23:03 Last Admin: 03/24/18 21:03 Dose: 50 mg Docusate Sodium (Colace) 250 mg PO DAILY [facility] Stop: 05/22/18 08:59 Last Admin: 03/24/18 09:23 Dose: Not Given Gabapentin (Neurontin) 300 mg PO QID [facility] Stop: 05/22/18 08:59 Last Admin: 03/24/18 21:01 Dose: 300 mg Sodium Chloride (Nacl 0.9%) 1,000 mls @ 75 mls/hr IV .[id number] [facility] Stop: 05/21/18 15:25 Last Infusion: 03/24/18 06:27 Dose: 75 mls/hr Metronidazole (Flagyl) 500 mg in 100 mls @ 100 mls/hr IV Q6HR [facility] Stop: 05/22/18 00:29 Last Admin: 03/25/18 05:31 Dose: 100 mls/hr Levetiracetam (Keppra) 1,000 mg PO Q12H [facility] Stop: 05/21/18 08:59 Last Admin: 03/24/18 21:00 Dose: 1,000 mg Magnesium Hydroxide (Milk Of Magnesia) 30 ml PO HS PRN PRN Reason: Constipation Stop: 05/21/18 23:03 Methocarbamol (Robaxin) 500 mg PO BID PRN PRN Reason: Pain (Moderate) Stop: 05/21/18 16:39 Last Admin: 03/22/18 20:11 Dose: 500 mg Methocarbamol (Robaxin) 250 mg PO BID PRN PRN Reason: Spasms Stop: 05/21/18 23:03 Last Admin: 03/25/18 06:44 Dose: 250 mg Miscellaneous (Apixaban [Eliquis]) 5 mg PO Q12HR [facility] Stop: 05/22/18 08:59 Morphine Sulfate (Morphine) 3 mg IVP Q4H PRN PRN Reason: SERVERE PAIN Stop: 05/23/18 23:53 Oxycodone/Acetaminophen (Percocet 5/325mg Oral Tab) 2 tab PO Q4H PRN PRN Reason: Pain (Severe) Stop: 05/22/18 16:08 Last Admin: 03/25/18 06:44 Dose: 2 tab Polyethylene Glycol/Electrolytes (Golytely) 4,000 ml PO X1 ONE Stop: 03/25/18 11:39 Trazodone HCl (Desyrel) 100 mg PO HS PRN PRN Reason: Insomnia Stop: 05/21/18 23:19 Last Admin: 03/25/18 00:13 Dose: 100 mg General: Alert, Oriented x3, No acute distress Cardiovascular: Regular rate, Normal S1, Normal S2 Lungs: Clear to auscultation Abdomen: Bowel sounds, Soft Assessment/Plan - Assessment Assessment: 1. colitis 2. Abdominal pain. 3. H/O colon polyps - Plan Plan: 1. colitis. Cont with antibiotics and colonoscopy in AM. 2. Abdominal pain. Most likely dt colitis. Colonoscopy in AM. 3. H/O colon polyps. Colonoscopy in AM
[2018-03-25] MEDS: Multivitamin w/ Minerals Tab PO SCH (11:24)
--- NOTE | 2018-03-25 23:22 | Progress Notes ---
DATE: 03/25/2018 SUBJECTIVE: Case was discussed with staff of the patient, reviewed records. The patient has multiple complaints about the hospital believed that TV ____ hospital in town. I explained to him that he needs to put his complaint and writing as he tried to show me how to fix the TV and I told him it is not my job. I do not do these things I did not want to waste his time complaining and show me how to fix the TV. He seems to have poor insight, unpredictable. However, he denies any intent to harm self or anybody. Denies depression, hallucination. He was very upset when he was told that he has a history of schizophrenia. He says never had that. He took Seroquel just for lack of sleep and the patient needs follow up with the psychiatrist upon discharge. Thank you very much for allowing me to participate in the care of this most interesting gentleman. JOB# [id number]
[2018-03-25] MEDS: Sodium Chloride 0.9% 1,000 ML IV SCH (23:56)
[2018-03-26] MEDS: metroNIDAZOLE 500mg/NS 100mL 500 MG/100 ML BAG IV SCH ×5 (00:57→17:12)
--- NOTE | 2018-03-26 08:47 | Diagnostic Imaging Report ---
CHEST X-RAY: AP view INDICATION: Pneumonia COMPARISON: None FINDINGS: There is a small right effusion with mild volume loss of the right lung. No focal consolidation. Cardiomegaly is noted. The osseous structures are intact. IMPRESSION: Small right effusion with mild volume loss of the right lung. No focal consolidation is identified. Clinical correlation is recommended. Cardiomegaly.
[2018-03-26] MEDS: Multivitamin w/ Minerals Tab PO SCH (08:57)
[2018-03-26] MEDS: APAP/Oxycodone 5/325mg Tab PO PRN ×2 (08:57→13:17)
--- NOTE | 2018-03-26 21:52 | Internal Medicine Prog Note ---
Internal Medicine Subjective - Subjective Service Date: 03/25/18 Patient seen and examined:: without staff Patient is:: awake, verbal, interactive, arousable, in bed Patient Complaints of:: unable to sleep Per staff patient has:: no adverse event Internal Medicine Objective - Results Result Diagrams: 03/25/18 06:02 03/25/18 06:02 Recent Labs: Laboratory Last Values WBC 6.7 Th/cmm (4.8-10.8) 03/25/18 06:02 RBC 4.52 Mil/cmm (4.30-5.70) 03/25/18 06:02 Hgb 14.8 gm/dL (12-16) 03/25/18 06:02 Hct 44.7 % (41.0-60) 03/25/18 06:02 MCV 98.8 fl (80-99) 03/25/18 06:02 MCH 32.8 pg (26.0-30.0) H 03/25/18 06:02 MCHC Differential 33.2 pg (28.0-36.0) 03/25/18 06:02 RDW 12.4 % (11.5-20.0) 03/25/18 06:02 Plt Count 247 Th/cmm (150-400) 03/25/18 06:02 MPV 7.9 fl 03/25/18 06:02 Neutrophils % 47.2 % (40.0-80.0) 03/25/18 06:02 Lymphocytes % 41.9 % (20.0-50.0) 03/25/18 06:02 Monocytes % 7.3 % (2.0-10.0) 03/25/18 06:02 Eosinophils % 3.3 % (0.0-5.0) 03/25/18 06:02 Basophils % 0.3 % (0.0-2.0) 03/25/18 06:02 PT 12.1 SECONDS (9.5-11.5) H 03/25/18 06:02 INR 1.17 (0.5-1.4) 03/25/18 06:02 Sodium 142 mEq/L (136-145) 03/25/18 06:02 Potassium 3.6 mEq/L (3.5-5.1) 03/25/18 06:02 Chloride 110 mEq/L (98-107) H 03/25/18 06:02 Carbon Dioxide 27.1 mEq/L (21.0-31.0) 03/25/18 06:02 Anion Gap 8.5 (7.0-16.0) 03/25/18 06:02 BUN 14 mg/dL (7-25) 03/25/18 06:02 Creatinine 0.8 mg/dL (0.7-1.3) 03/25/18 06:02 Est GFR ( Amer) > 60.0 ml/min (>90) 03/25/18 06:02 Est GFR (Non-Af Amer) > 60.0 ml/min 03/25/18 06:02 BUN/Creatinine Ratio 17.5 03/25/18 06:02 Glucose 102 mg/dL (70-105) 03/25/18 06:02 Calcium 8.9 mg/dL (8.6-10.3) 03/25/18 06:02 Magnesium 2.0 mg/dL (1.9-2.7) 03/22/18 12:06 Total Bilirubin 0.4 mg/dL (0.3-1.0) 03/25/18 06:02 AST 14 U/L (13-39) 03/25/18 06:02 ALT 12 U/L (7-52) 03/25/18 06:02 Alkaline Phosphatase 58 U/L (34-104) 03/25/18 06:02 B-Natriuretic Peptide 147.0 pg/mL (5.0-100.0) H 03/25/18 06:02 Total Protein 6.3 gm/dL (6.0-8.3) 03/25/18 06:02 Albumin 3.5 gm/dL (4.2-5.5) L 03/25/18 06:02 Globulin 2.8 gm/dL 03/25/18 06:02 Albumin/Globulin Ratio 1.3 (1.0-1.8) 03/25/18 06:02 Lipase 19 U/L (11-82) 03/22/18 12:06 Urine Source RANDOM 03/22/18 15:08 Urine Color YELLOW 03/22/18 15:08 Urine Clarity CLEAR (CLEAR) 03/22/18 15:08 Urine pH 6.0 (4.6 - 8.0) 03/22/18 15:08 Ur Specific [place] >= 1.030 (1.005-1.030) 03/22/18 15:08 Urine Protein NEGATIVE mg/dL (NEGATIVE) 03/22/18 15:08 Urine Glucose (UA) NEGATIVE mg/dL (NEGATIVE) 03/22/18 15:08 Urine Ketones NEGATIVE mg/dL (NEGATIVE) 03/22/18 15:08 Urine Blood NEGATIVE (NEGATIVE) 03/22/18 15:08 Urine Nitrate NEGATIVE (NEGATIVE) 03/22/18 15:08 Urine Bilirubin NEGATIVE (NEGATIVE) 03/22/18 15:08 Urine Urobilinogen 0.2 E.U./dL (0.2 - 1.0) 03/22/18 15:08 Ur Leukocyte Esterase NEGATIVE (NEGATIVE) 03/22/18 15:08 Urine RBC 0-2 /hpf (0-5) H 03/22/18 15:08 Urine WBC 2-5 /hpf (0-5) 03/22/18 15:08 Ur Epithelial Cells NONE SEEN /lpf (FEW) 03/22/18 15:08 Urine Bacteria FEW /hpf (NONE SEEN) 03/22/18 15:08 - Physical Exam Vitals and I&O: Vital Signs Temp 97.2 F 03/26/18 15:47 Pulse 54 03/26/18 15:47 Resp 18 03/26/18 16:00 BP 130/53 03/26/18 15:47 Pulse Ox 99 03/26/18 15:47 Intake & Output 03/26/18 03/26/18 03/27/18 06:59 18:59 06:59 Intake Total 100 600 Output Total 700 Balance 100 -100 Weight (lbs) 84.822 kg 84.822 kg Intake: Intake, IV Amount 100 100 metroNIDAZOLE 500mg/NS 100 100 100mL 500 mg In 100 ml @ 100 mls/hr IV Q6HR [facility] Rx #:[id number] Oral 500 Tube Feeding 0 TPN/PPN 0 Blood Product 0 Lipid 0 Albumin 0 Other 0 Output: Gastric Drainage 0 Urine 700 Stool 0 Urine/Stool Mix 0 Emesis 0 Hemodialysis 0 Other 0 Other: # Voids 3 # Bowel Movements 0 Weight Source Bedscale Bedscale General: weak, lethargic HEENT: NC/AT, PERRLA, EOMI, anicteric sclerae, throat clear, thyromegaly Neck: Supple, No JVD Lungs: CTAB Cardiovascular: RRR, Normal S1, Normal S2 Abdomen: soft, tender Extremities: clear Neurological: no change Internal Medicine Assmt/Plan - Assessment Assessment: Noncompliance: education provided. Insomnia: adjusting meds? Abd pain: multifactorial; work up in progress. Colitis: flagyl IVPB or PO; GI consult appreciated. h/o colon polyps: Colonoscopy? Chronic pain syndrome exacerbation: adjusting pain meds? Anxiety: Psychiatric consult. Difficult walking: fall prevention.
--- NOTE | 2018-03-26 22:18 | Progress Notes ---
DATE: SUBJECTIVE: Chart reviewed and the patient interviewed. Also discussed the patient's condition with the staff and reviewed records and labs. The patient is still in angry and in irritable mood. The patient also is hyper talkative, also is suspicious and is still paranoid. He also is still unable to follow directions. Otherwise, he is not going to have colonoscopy today and the patient will be discharged later on this evening. Plan is to follow up the patient in the detention. JOB# [id number]
--- NOTE | 2018-03-29 16:23 | Discharge Summary ---
DATE OF DISCHARGE: 03/26/2018 FINAL DIAGNOSES: 1. Abdominal pain, improved. 2. Colitis, received Flagyl with improvement. 3. Chronic pain syndrome exacerbation, improved. 4. Anxiety, subsided. 5. Noncompliance, improved. 6. Insomnia, improved. HOSPITAL COURSE: The patient is a 57-year-old male admitted due to abdominal pain with CT evidence of colitis. The patient has had history of colon polyps, status post removal, which was 3-4 years ago. GI consultation requested and the plan is to have colonoscopy. The patient initially agreed for colonoscopy and was willing to cooperate, but he eventually has refused the procedure. Anyway, clinically the patient improved as he was discharged back to [facility]. DISCHARGE CONDITION: Stable. DISPOSITION: [facility]. DISCHARGE MEDICATION: Continue medication from here. DIET: Cardiac, soft diet. ACTIVITY: Up in wheelchair with physical therapy. FOLLOWUP: In 1 week. JOB# [id number]
== END 2018-03-26 18:11 | DRG 391 ==
LOC: ER 11:35 → TELE 14:50
PROVIDERS: ADMIT Internal Medicine; ATTEND Internal Medicine
DX: K52.9 Noninfective gastroenteritis and colitis, unspecified (principal); G93.41 Metabolic encephalopathy; R10.9 Unspecified abdominal pain; G47.00 Insomnia, unspecified; I10 Essential (primary) hypertension; F17.210 Nicotine dependence, cigarettes, uncomplicated; G40.909 Epilepsy, unspecified, not intractable, without status epilepticus; K27.7 Chronic peptic ulcer, site unspecified, without hemorrhage or perforation; M10.9 Gout, unspecified; E78.5 Hyperlipidemia, unspecified; G62.9 Polyneuropathy, unspecified; F32.9 Major depressive disorder, single episode, unspecified; G89.4 Chronic pain syndrome; F41.1 Generalized anxiety disorder; I48.91 Unspecified atrial fibrillation; Z91.14 Patient's other noncompliance with medication regimen; Z86.73 Personal history of transient ischemic attack (TIA), and cerebral infarction without residual deficits; Z91.041 Radiographic dye allergy status
CPT/HCPCS: 36415-UA; 71045-TC; 80048-TC; 80053-TC; 81001-TC; 83690-TC; 83735-TC; 83880-TC; 85025-TC; 85610-TC; 87086-90; 90799; 93005; J7030; Z7610